=== PATIENT | female | born 1960 | race Two or more races ===

== ENCOUNTER 2022-07-14 16:05 | Emergency (ER) | payer MEDICAID, OTHER ==
[~2022-07-14] VITALS: Ht 157.5 cm; Wt 78.5 kg
[2022-07-14 17:55] LABS: Basophils # (auto) 0 10 ^3/uL (0-0.2); Basophils % (auto) 0.5 % (0.0-2.0); Eosinophils # (auto) 0.2 10 ^3/uL (0-0.8); Hematocrit 39.7 % (36.0-46.0); Hemoglobin 13.5 g/dL (12.2-16.2); Lymphocytes # (auto) 2.6 10 ^3/uL (0.4-5.4); Lymphocytes % (auto) 31.7 % (10.0-50.0); Mean Corpuscular Hemoglobin 29.1 pg (28.0-32.0); Mean Corpuscular Hgb Conc. 33.9 g/dL (32.0-36.0); Mean Corpuscular Volume 85.8 fL (80.0-100.0); Monocytes # (auto) 0.7 10 ^3/uL (0-1.3); Monocytes % (auto) 8.4 % (0.0-12.0); Neutrophils # (auto) 4.6 10 ^3/uL (1.6-8.6); Neutrophils % (auto) 56.4 % (37.0-80.0); Nucleated Red Blood Cells % 0.1 %; Red Blood Cells 4.63 10^6/uL (4.0-5.20); Red Cell Distribution Width 13.9 % (11.8-14.3); White Blood Cell 8.1 10^3/uL (4.4-10.8)
[2022-07-14 18:05] LABS: Albumin 3.1 g/dL (3.4-5.0); Calcium 9.1 mg/dL (8.5-10.1); Potassium 4.3 mmol/L (3.5-5.1)
[2022-07-14 18:08] LABS: BUN/Creatinine Ratio 31.6 (10.0-20.0); Bilirubin, Total 0.3 mg/dL (0.2-1.0)
[2022-07-14] MEDS ORDERED: KETOROLAC TROMETH 30 MG/ML 1ML VIAL IM ONE (19:45)
[2022-07-14] MEDS ORDERED: DICL-163 PO (19:45)
[2022-07-14] MEDS ORDERED: methylPREDNISolone SOD SUCC 125 MG/2 ML VL IM ONE (19:45)
[2022-07-14 20:34] VITALS: BP 130/58
== END 2022-07-14 20:38 | disposition home or self-care (01) ==
LOC: ER 16:05
DX: S93.402A Sprain of unspecified ligament of left ankle, initial encounter (principal); M25.572 Pain in left ankle and joints of left foot; X58.XXXA Exposure to other specified factors, initial encounter; Y93.89 Activity, other specified; Y92.89 Other specified places as the place of occurrence of the external cause; Y99.8 Other external cause status
CPT/HCPCS: 36415; 73610; 73630; 80053; 84484; 85025; 85379; 93971; 96372; 99285; J1885; J2930

== ENCOUNTER → 2022-08-04 | Outpatient (CLI) | payer MEDICAID ==
[~2022-08-04] MED LIST: DICL-163 PO
== END | disposition home or self-care (01) ==
LOC: LAB 10:32
PROVIDERS: ATTEND Internal Medicine
DX: M79.672 Pain in left foot (principal)
CPT/HCPCS: 36415; 84550; 85652

== ENCOUNTER → 2022-10-06 | Outpatient (CLI) | payer MEDICAID | END | disposition home or self-care (01) | LOC: LAB 14:51 | PROVIDERS: ATTEND Internal Medicine | DX: M06.9 Rheumatoid arthritis, unspecified (principal) | CPT/HCPCS: 36415; 85652 ==

== ENCOUNTER → 2022-12-08 | Outpatient (CLI) | payer MEDICAID ==
[2022-12-08 11:19] LABS: Cholesterol 184 mg/dL (< 200)
[2022-12-08 11:20] LABS: LDL Cholesterol 130 mg/dL (< 100); Triglycerides 100 mg/dL (< 150)
[2022-12-08 11:22] LABS: HDL Cholesterol 41 mg/dL (40-59)
[2022-12-08 12:54] LABS: Erythrocyte Sedimentation Rate 29 mm/hr (0-20)
== END | disposition home or self-care (01) ==
LOC: LAB 10:16
PROVIDERS: ATTEND Internal Medicine
DX: Z12.11 Encounter for screening for malignant neoplasm of colon (principal); M06.9 Rheumatoid arthritis, unspecified
CPT/HCPCS: 36415; 80061; 83036; 85652

== ENCOUNTER → 2023-05-28 | Outpatient (CLI) | payer MEDICAID ==
[2023-05-28 09:09] LABS: Basophils # (auto) 0.1 10 ^3/uL (0-0.2); Basophils % (auto) 0.6 % (0.0-2.0); Eosinophils # (auto) 0.2 10 ^3/uL (0-0.8); Eosinophils % (auto) 1.7 % (0.0-7.0); Hematocrit 41.5 % (36.0-46.0); Lymphocytes # (auto) 3.8 10 ^3/uL (0.4-5.4); Lymphocytes % (auto) 36.7 % (10.0-50.0); Mean Corpuscular Hemoglobin 28.6 pg (28.0-32.0); Mean Corpuscular Hgb Conc. 33.7 g/dL (32.0-36.0); Mean Corpuscular Volume 84.9 fL (80.0-100.0); Monocytes # (auto) 0.7 10 ^3/uL (0-1.3); Monocytes % (auto) 6.7 % (0.0-12.0); Neutrophils # (auto) 5.6 10 ^3/uL (1.6-8.6); Neutrophils % (auto) 54.3 % (37.0-80.0); Nucleated Red Blood Cells % 0.1 %; Red Blood Cells 4.88 10^6/uL (4.0-5.20); Red Cell Distribution Width 14.8 % (11.8-14.3); White Blood Cell 10.4 10^3/uL (4.4-10.8)
[2023-05-28 09:42] LABS: Erythrocyte Sedimentation Rate 18 mm/hr (0-20)
[2023-05-28 09:46] LABS: Creatinine, Urine 203.1 mg/dL (30.0-125.0)
[2023-05-28 09:48] LABS: Alanine Aminotransferase 25 U/L (7-40); Albumin 4.2 g/dL (3.2-4.8); Alkaline Phosphatase 114 U/L (46-116); Anion Gap 8 (5-15); Aspartate Aminotransferase 12 U/L (13-40); BUN/Creatinine Ratio 17.7 (10.0-20.0); Blood Urea Nitrogen 11 mg/dL (9-23); Calcium 9.2 mg/dL (8.5-10.1); Carbon Dioxide 27 mmol/L (20-30); Chloride 105 mmol/L (98-107); Glucose 112 mg/dL (74-106); Potassium 3.8 mmol/L (3.5-5.1); Sodium 140 mmol/L (136-145)
[2023-05-28 09:49] LABS: Bilirubin, Total 0.6 mg/dL (0.2-1.0); Total Protein 6.9 g/dL (5.7-8.2)
[2023-05-28 10:32] LABS: CRP High Sensitivity 0.91 mg/dL (<1.0)
[2023-05-28 10:41] LABS: Uric Acid 3.4 mg/dL (3.1-7.8)
[2023-05-29 08:06] LABS: Rheumatoid Arthritis Factor 14.1 IU/mL (<14.0)
== END | disposition home or self-care (01) ==
LOC: LAB 08:56
PROVIDERS: ATTEND Internal Medicine Rheumatology
DX: E11.9 Type 2 diabetes mellitus without complications (principal); M06.4 Inflammatory polyarthropathy; M25.50 Pain in unspecified joint
CPT/HCPCS: 36415; 80053; 82043; 82570; 83036; 84550; 85025; 85652; 86141; 86200; 86431

== ENCOUNTER → 2024-03-15 | Outpatient (CLI) | payer MEDICAID ==
[~2024-03-15] MED LIST changes: -DICL-163 PO; +DICL50TA5 PO
[2024-03-15 13:59] LABS: Basophils # (auto) 0.1 10 ^3/uL (0-0.2); Basophils % (auto) 0.6 % (0.0-2.0); Eosinophils # (auto) 0.2 10 ^3/uL (0-0.8); Eosinophils % (auto) 2.6 % (0.0-7.0); Hematocrit 42.2 % (36.0-46.0); Lymphocytes # (auto) 2.6 10 ^3/uL (0.4-5.4); Lymphocytes % (auto) 29.2 % (10.0-50.0); Mean Corpuscular Hemoglobin 29.3 pg (28.0-32.0); Mean Corpuscular Hgb Conc. 33.2 g/dL (32.0-36.0); Mean Corpuscular Volume 88.3 fL (80.0-100.0); Monocytes # (auto) 0.6 10 ^3/uL (0-1.3); Monocytes % (auto) 6.5 % (0.0-12.0); Neutrophils # (auto) 5.4 10 ^3/uL (1.6-8.6); Neutrophils % (auto) 61.1 % (37.0-80.0); Platelet Count (auto) 289 10^3/uL (140-450); Red Blood Cells 4.77 10^6/uL (4.0-5.20); Red Cell Distribution Width 15.8 % (11.8-14.3); White Blood Cell 8.9 10^3/uL (4.4-10.8)
[2024-03-15 14:15] LABS: Creatinine, Urine 170.92 mg/dL (30.0-125.0)
[2024-03-15 14:18] LABS: Micro Albumin < 3.0 mg/L (<30.0)
[2024-03-15 14:30] LABS: Erythrocyte Sedimentation Rate 18 mm/hr (0-20)
[2024-03-15 14:44] LABS: CRP High Sensitivity 1.41 mg/dL (<1.0)
[2024-03-16 09:06] LABS: Rheumatoid Arthritis Factor 13.6 IU/mL (<14.0)
== END | disposition home or self-care (01) ==
LOC: LAB 13:19
PROVIDERS: ATTEND Internal Medicine Rheumatology
DX: M06.4 Inflammatory polyarthropathy (principal)
CPT/HCPCS: 36415; 82043; 82570; 84450; 84460; 85025; 85652; 86141; 86200; 86431